=== PATIENT | female | born 1960 | race Caucasian/White ===

== ENCOUNTER → 2016-08-26 | Outpatient (CLI) | payer BC ==
--- NOTE | 2016-08-29 09:33 | RAD ---
EXAM DESCRIPTION: Foot,Left 3 Views CLINICAL HISTORY: Foot pain FINDINGS/ IMPRESSION: Osteopenia. 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 No advanced osteoarthritis or inflammatory arthritis Small well corticated plantar calcaneal spur Electronically signed by: Grey Pickard MD 08/29/2016 9:32 AM AUTOMOTIVE WORKER
== END | disposition home or self-care (01) ==
LOC: RAD 14:48
PROVIDERS: ATTEND Nurse Practitioner Family
DX: M79.672 Pain in left foot (principal)

== ENCOUNTER → 2016-10-04 | Outpatient (CLI) | payer BC | END | disposition home or self-care (01) | LOC: GMAL 14:22 | PROVIDERS: ATTEND Family Medicine | DX: E55.9 Vitamin D deficiency, unspecified (principal) ==

== ENCOUNTER → 2016-10-12 | Outpatient (CLI) | payer BC | END | disposition home or self-care (01) | LOC: GMAL 17:24 | PROVIDERS: ATTEND Family Medicine | DX: R53.82 Chronic fatigue, unspecified (principal) ==

== ENCOUNTER → 2017-01-24 | Outpatient (CLI) | payer BC | END | disposition home or self-care (01) | LOC: GMAL 10:47 | PROVIDERS: ATTEND Family Medicine | DX: E53.9 Vitamin B deficiency, unspecified (principal) ==

== ENCOUNTER → 2017-03-15 | Outpatient (CLI) | payer BC | END | disposition home or self-care (01) | LOC: LAB.O 08:34 | PROVIDERS: ATTEND Obstetrics & Gynecology | DX: R73.09 Other abnormal glucose (principal) ==

== ENCOUNTER → 2017-04-11 | Outpatient (CLI) | payer BC ==
--- NOTE | 2017-04-11 15:49 | US ---
EXAM DESCRIPTION: Abdomen,Complete: Ultrasound. CLINICAL HISTORY: ABD PAIN COMPARISON: None Available. TECHNIQUE: Transabdominal scannin-dimensional and Doppler modes. FINDINGS: The gallbladder has been surgically removed. No fluid in the gallbladder fossa. Common bile duct caliber 13 mm which is within normal limits. Postcholecystectomy No stones in the visualized portion of the duct. Not tender with transducer pressure. The liver demonstrates increased echogenicity; contour of the liver capsule is smooth where seen. No fluid around the liver. Intrahepatic biliary ducts are non-dilated. Craniocaudal dimension in the mid-clavicular axis is 18.0 cm. Pancreas head, body, and tail well-visualized. The duct was not seen. Normal Doppler vascularity in the amina hepatis. Abdominal aorta diameter proximal 2.0 cm. Mid 1.8 cm. Distal 1.9 cm. IVC visualized; normal caliber. Spleen normal echogenicity; long axis measurement is 9.3 cm. No fluid in the spleno-renal fossa. Right kidney measures 9.9 x 4.4 x 4.2 cm . Mid renal cortical thickness 9 mm. Echogenicity otherwise normal with no hydronephrosis, no large calcifications, and no perinephric fluid. Contour smooth. Vascularity normal. Ureter not visualized. Left kidney measures 8.9 x 5.5 x 5.4 cm . Mid renal cortical thickness 11 mm. Echogenicity otherwise normal with no hydronephrosis, no large calcifications, and no perinephric fluid. Contour smooth. Vascularity normal. Ureter not visualized. IMPRESSION: 1. Mild hepatomegaly with fatty infiltration/steatosis which can be related to obesity and a variety of metabolic and toxic conditions. No ascites. Normal intrahepatic ducts. Pancreas was not well seen. Gallbladder has been surgically removed. No fluid in Morison's pouch. Dilation of the common bile duct is not unusual postcholecystectomy. 2. Normal ultrasound of the spleen. Bilateral kidneys are small with cortical atrophy with normal echogenicity. No hydronephrosis or perirenal fluid. Normal caliber of the abdominal aorta. Electronically signed by: Crsito Willis MD 04/11/2017 3:48 PM CDT
== END | disposition home or self-care (01) ==
LOC: US 08:35
PROVIDERS: ATTEND Family Medicine
DX: R10.9 Unspecified abdominal pain (principal)

== ENCOUNTER → 2017-04-26 | Outpatient (CLI) | payer BC ==
--- NOTE | 2017-05-01 08:23 | MAM ---
EXAM DESCRIPTION: 3D Diagnostic, Bilateral : Digital Mammography. CLINICAL HISTORY: 56 years Female SCREEN history sheet. No complaints. Patient is adopted, does not know family history. Postmenopausal. No HRT. COMPARISON: 2-D screening bilateral study 04/25/2016 and 04/20/2015. Report from prior examination also reviewed. TECHNIQUE: Bilateral CC and MLO projection full-field images, 3-D tomosynthesis digital mammographic technique. Also bilateral synthesized CC/ MLO full-field images. CAD not utilized. FINDINGS: The breast parenchymal density pattern is: Almost entirely fatty. No skin thickening or nipple retraction bilateral solitary microcalcifications. Intramammary lymph node in the left axillary tail. No focal, stellate mass or density, focal asymmetry , and no suspicious microcalcifications bilaterally. Stable mammograms compared to prior studies taking into account differences in mammographic technique IMPRESSION: BI-RADS CATEGORY: 2 - BENIGN FINDINGS. FOLLOW UP: Routine digital bilateral screening, one year interval from April 2017. Written communication explaining the IMPRESSION and follow-up, will be mailed to the patient and referring health care provider. According to the [employer], yearly mammograms are recommended starting at age 40 and continuing as long as a woman is in good health. Any breast change noted on a breast self-exam should be reported promptly to the patient's healthcare provider. Breast MRI is recommended for women with an approximately 20-25% or greater lifetime risk of breast cancer, including women with a strong family history of breast or ovarian cancer and women who have been treated for Hodgkin's disease. A negative mammographic report should not delay tissue diagnosis in patients with significant clinical history or physical findings. Extremely dense breast tissue limits the sensitivity of digital mammography. Electronically signed by: Cristo Willis MD 05/01/2017 8:22 AM CDT
== END | disposition home or self-care (01) ==
LOC: MAMMO 15:12
PROVIDERS: ATTEND Obstetrics & Gynecology
DX: Z12.31 Encounter for screening mammogram for malignant neoplasm of breast (principal)
CPT/HCPCS: 77063; G0202

== ENCOUNTER → 2017-08-08 | Outpatient (CLI) | payer BC | LOC: GMAL 10:57 | PROVIDERS: ATTEND Family Medicine | DX: Z00.00 Encounter for general adult medical examination without abnormal findings (principal) ==

== ENCOUNTER → 2017-09-25 | Outpatient (CLI) | payer BC ==
--- NOTE | 2017-09-25 10:22 | CT ---
EXAM DESCRIPTION: Lumbar Spine: Computed Tomography. CLINICAL HISTORY: LUMBAR SPONDYLOSIS COMPARISON: MRI lumbar spine 03/30/2015. Ultrasound abdomen on this visit. TECHNIQUE: Spiral, axial 2.5 mm scans through the lumbarspine without contrast. Coronal and sagittal 2.0 mm Reconstructions. Total Exam DLP: 865.44 mGy-cm. This exam was performed according to our departmental dose-optimization program which includes automated exposure control, adjustment of the mA and/or kV according to patient size and/or use of iterative reconstruction technique; to reduce radiation dose to as low as reasonably achievable (ALARA). FINDINGS: L5-S1: Minimal posterior disc space loss. Broad-based 5 mm bulge and focal right paracentral 7.5 mm protrusion. Hypertrophied ligaments. AP canal diameter 12 mm. Bilateral facet arthrosis. 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 Fragment is abutting the descending right S1 nerve in the subarticular recess. Gas formation in the left joint. Bilateral ligament hypertrophy. Right foraminal stenosis by bone and soft tissue. Mild to moderate left foraminal narrowing. L4-5: Posterior disc bulge 4 mm with disc space preserved. Bilateral flavum ligament hypertrophy with mild right facet arthrosis. AP canal diameter 10 mm. Moderate right foraminal narrowing and mild left foraminal narrowing. L3-4: Posterior bulging disc 4 to 5 mm and anterior marginal ridging. Minimal bilateral flavum ligament hypertrophy. Borderline mild canal stenosis. Minimal left facet arthrosis. Bilateral moderate foraminal narrowing. L2-3: Minimal posterior disc space loss. Minimal bilateral facet arthrosis. No posterior disc bulging with mild canal narrowing. Bilateral foraminal narrowing. L1-2: Anterior disc bulge and endplate ridging. Tiny posterior bulge with right posterior marginal calcification or spur from the L1 endplate. Bilateral mild foraminal narrowing. No significant canal narrowing.. Minimal bilateral facet arthrosis. T12-L1: Posterior disc space narrowing with no disc bulging. Anterior mild disc bulging and endplate ridging. Canal and foramina are patent. Posterior elements are unremarkable. No scoliosis or significant spondylolisthesis. No compression type vertebral body fractures no fractures of the posterior elements. IMPRESSION: 1. Posterior right paracentral protrusion L5-S1 disc. 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 Correlate for right S1 radiculopathy. Moderate canal narrowing. 2. Posterior L4-5 disc bulge with borderline central canal stenosis. 3. Posterior bulge L3-4 disc with borderline mild central canal stenosis and bilateral moderate foraminal narrowing. Electronically signed by: Cristo Willis MD 09/25/2017 10:17 AM CDT
--- NOTE | 2017-09-25 16:05 | US ---
EXAM DESCRIPTION: Abdomen,Complete: Ultrasound. CLINICAL HISTORY: ABD PAIN. Previous cholecystectomy. COMPARISON: CT scan of the lumbar spine on the same visit. Abdominal ultrasound 04/11/2017. TECHNIQUE: Transabdominal scannin-dimensional and Doppler modes. FINDINGS: Gallbladder: Surgically removed. No fluid in the gallbladder fossa. Common bile duct: 4.3 mm which is normal caliber. Liver: Long axis of the right lobe is 18.7 cm. Normal echogenicity. Normal intrahepatic ducts. Smooth capsule. Normal portal venous flow. No ascites. Pancreas: Not well visualized.. Abdominal aorta: Normal caliber from the proximal segment to the bifurcation. IVC: visualized; normal caliber. Spleen normal echogenicity; long axis measurement is 10 cm. Right kidney: 7.8 cm long axis. Normal cortical echogenicity. Cortical thickness 9 mm. No hydronephrosis. Left kidney: 9.2 cm long axis. Cortical thickness 10 mm with normal echogenicity. No hydronephrosis. IMPRESSION: 1. There is mildly enlarged but with normal echogenicity and normal ducts. Appearance of steatosis on the prior study. Smooth capsule no ascites. Normal vascularity. Gallbladder has been surgically removed. Normal caliber of the common bile duct. Has decreased in size since the prior study. 2. Normal ultrasound of the spleen. Pancreas was not well visualized. Normal caliber of the abdominal aorta and the IVC. 3. Bilateral kidneys are small with thin cortex. No hydronephrosis. Stable since the prior study. Correlate for renal function. Electronically signed by: Cristo Willis MD 09/25/2017 4:02 PM CDT
== END ==
LOC: CT 08:00
PROVIDERS: ATTEND Family Medicine
DX: M47.816 Spondylosis without myelopathy or radiculopathy, lumbar region (principal); M51.26 Other intervertebral disc displacement, lumbar region; R10.9 Unspecified abdominal pain

== ENCOUNTER → 2018-05-04 | Outpatient (CLI) | payer BC ==
--- NOTE | 2018-05-07 10:55 | MAM ---
EXAM DESCRIPTION: 3D Screening BILATERAL : Digital Mammography. CLINICAL HISTORY: 57 years Female SCREEN . No complaints or personal history of breast cancer. Remote family history of breast cancer. Childbirth. Postmenopausal. No HRT.. Lifetime risk of developing breast cancer (Tyrer-Cuzick model)(%): 7.6. COMPARISON: I lateral diagnostic digital breast tomosynthesis 04/26/2017. 2-D digital screening bilateral mammography 04/25/2016. No prior reports available. TECHNIQUE: Bilateral CC and MLO projection full-field images, digital tomosynthesis mammographic technique. Bilateral digital 2-D full-field MLO images. CAD not utilized. FINDINGS: The breast parenchymal density pattern is: Almost entirely fatty. No skin thickening or nipple retraction. Bilateral solitary microcalcifications. Small lymph node in the left axillary tail. No new focal, stellate mass or density, focal asymmetry , and no suspicious microcalcifications bilaterally. Stable mammograms compared to prior study. IMPRESSION: Benign exam. BIRAD CATEGORY: 2 BENIGN FINDINGS. RECOMMENDATIONS: FOLLOW UP: Routine digital bilateral mammographic screening, one year interval from May 2018. Written communication explaining the IMPRESSION and follow-up, will be mailed to the patient and referring health care provider. According to the [employer], yearly mammograms are recommended starting at age 40 and continuing as long as a woman is in good health. Any breast change noted on a breast self-exam should be reported promptly to the patient's healthcare provider. Breast MRI is recommended for women with an approximately 20-25% or greater lifetime risk of breast cancer, including women with a strong family history of breast or ovarian cancer and women who have been treated for Hodgkin's disease. A negative mammographic report should not delay tissue diagnosis in patients with significant clinical history or physical findings. Extremely dense breast tissue limits the sensitivity of digital mammography. Electronically signed by: Cristo Willis MD 05/07/2018 10:54 AM MORTGAGE CONSULTANT
== END ==
LOC: MAMMO 08:00
PROVIDERS: ATTEND Family Medicine
DX: Z12.31 Encounter for screening mammogram for malignant neoplasm of breast (principal)

== ENCOUNTER → 2018-05-15 | Outpatient (CLI) | payer BC | LOC: GMAL 11:23 | PROVIDERS: ATTEND Family Medicine | DX: D51.0 Vitamin B12 deficiency anemia due to intrinsic factor deficiency (principal) ==

== ENCOUNTER → 2019-02-19 | Outpatient (CLI) | payer BC | LOC: GMAL 10:52 | PROVIDERS: ATTEND Family Medicine | DX: D51.0 Vitamin B12 deficiency anemia due to intrinsic factor deficiency (principal); E78.49 Other hyperlipidemia; R53.82 Chronic fatigue, unspecified; E55.9 Vitamin D deficiency, unspecified; Z79.899 Other long term (current) drug therapy ==

== ENCOUNTER → 2019-05-06 | Outpatient (CLI) | payer BC ==
--- NOTE | 2019-05-06 16:32 | MAM ---
EXAM DESCRIPTION: 3D Screening BILATERAL : Digital Mammography. CLINICAL HISTORY: 58 years Female ANNUAL SCREENING . No complaints. No personal or family history of breast cancer. Menarche age 10. Childbirth. Postmenopausal 15+ years. No HRT. Lifetime risk of developing breast cancer (Tyrer-Cuzick model)(%): 9.1. COMPARISON: Bilateral screening digital breast tomosynthesis second of May 2018 and 26 April 2017.. TECHNIQUE: Bilateral CC and MLO projection full-field images, digital tomosynthesis mammographic technique. Bilateral digital 2-D full-field MLO images. CAD not available for tomosynthesis or 2-D images. FINDINGS: The breast parenchymal density pattern is: Scattered areas of fibroglandular density. No nipple retraction or skin thickening bilaterally.. Left intramammary lymph node. Scattered focal solitary microcalcifications. Bilateral axillary lymph nodes. No new focal, stellate mass or density, focal asymmetry , and no suspicious microcalcifications bilaterally. Stable mammograms compared to prior study. IMPRESSION: Benign exam. BIRAD CATEGORY: 2 BENIGN FINDINGS. RECOMMENDATIONS: FOLLOW UP: Routine digital bilateral mammographic screening, one year interval from May 2019. Written communication explaining the IMPRESSION and follow-up, will be mailed to the patient and referring health care provider. According to the [employer], yearly mammograms are recommended starting at age 40 and continuing as long as a woman is in good health. Any breast change noted on a breast self-exam should be reported promptly to the patient's healthcare provider. Breast MRI is recommended for women with an approximately 20-25% or greater lifetime risk of breast cancer, including women with a strong family history of breast or ovarian cancer and women who have been treated for Hodgkin's disease. A negative mammographic report should not delay tissue diagnosis in patients with significant clinical history or physical findings. Extremely dense breast tissue limits the sensitivity of digital mammography. Electronically signed by: Cristo Willis MD 05/06/2019 4:30 PM RFP WRITER
== END ==
LOC: MAMMO 07:54
PROVIDERS: ATTEND Obstetrics & Gynecology
DX: Z12.31 Encounter for screening mammogram for malignant neoplasm of breast (principal)

== ENCOUNTER → 2019-07-01 | Outpatient (CLI) | payer BC | LOC: GMAL 10:25 | PROVIDERS: ATTEND Family Medicine | DX: R53.82 Chronic fatigue, unspecified (principal) ==

== ENCOUNTER → 2019-09-18 | Outpatient (CLI) | payer BC | DX: Z00.01 Encounter for general adult medical examination with abnormal findings (principal) ==

== ENCOUNTER → 2020-03-30 | Outpatient (CLI) | payer BC | LOC: GMAL 10:48 | PROVIDERS: ATTEND Family Medicine | DX: R53.82 Chronic fatigue, unspecified (principal); E78.49 Other hyperlipidemia; Z79.899 Other long term (current) drug therapy ==

== ENCOUNTER → 2020-05-07 | Outpatient (CLI) | payer BC ==
--- NOTE | 2020-05-12 15:39 | MAM ---
EXAM DESCRIPTION: 3D Screening BILATERAL : Digital Mammography. CLINICAL HISTORY: 59 years Female ANNUAL SCREENING . No complaints. Remote family history of breast cancer. Menarche age 10. Childbirth age 24. Menopause age 39.. Lifetime risk of developing breast cancer (Tyrer-Cuzick model)(%): 8.9. COMPARISON: 11 screening digital breast tomosynthesis May 2019 and May 2018.. TECHNIQUE: Bilateral CC and MLO projection full-field images, digital tomosynthesis mammographic technique. Bilateral digital 2-D full-field MLO images. CAD available for 2-D images. FINDINGS: The breast parenchymal density pattern is: Almost entirely fatty No skin thickening or nipple retraction. Axillary nodes. Solitary microcalcifications. No new focal, stellate mass or density, focal asymmetry , and no suspicious microcalcifications bilaterally. Stable mammograms compared to prior study. IMPRESSION: Benign exam. BIRAD CATEGORY: 2 BENIGN FINDINGS. RECOMMENDATIONS: FOLLOW UP: Routine digital bilateral mammographic screening, one year interval from May 2020. Written communication explaining the IMPRESSION and follow-up, will be mailed to the patient and referring health care provider. According to the [employer], yearly mammograms are recommended starting at age 40 and continuing as long as a woman is in good health. Any breast change noted on a breast self-exam should be reported promptly to the patient's healthcare provider. Breast MRI is recommended for women with an approximately 20-25% or greater lifetime risk of breast cancer, including women with a strong family history of breast or ovarian cancer and women who have been treated for Hodgkin's disease. A negative mammographic report should not delay tissue diagnosis in patients with significant clinical history or physical findings. Extremely dense breast tissue limits the sensitivity of digital mammography. Electronically signed by: Cristo Willis MD 05/12/2020 3:37 PM [facility] [place]
== END ==
LOC: MAMMO 12:35
PROVIDERS: ATTEND Family Medicine
DX: Z12.31 Encounter for screening mammogram for malignant neoplasm of breast (principal)